=== PATIENT | female | born 1960 | race Caucasian/White ===

== ENCOUNTER 2016-09-23 15:49 | Emergency (ER) | payer SELFPAY ==
[2016-09-23] MEDS ORDERED: NACL 0.9% IR ONE (19:10)
[2016-09-23] MEDS ORDERED: BOOSTRIX IM ONE (19:10)
[2016-09-23] MEDS ORDERED: XYLOCAINE 1% 20 mL INFILTRATI ONE (19:10)
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
[2016-09-23 20:07] VITALS: BP 150/107
== END 2016-09-23 20:07 | disposition home or self-care (01) ==
LOC: ED 15:49
DX: S81.812A Laceration without foreign body, left lower leg, initial encounter (principal); I10 Essential (primary) hypertension; I25.2 Old myocardial infarction; F17.200 Nicotine dependence, unspecified, uncomplicated; Z95.1 Presence of aortocoronary bypass graft; Z88.8 Allergy status to other drugs, medicaments and biological substances; W25.XXXA Contact with sharp glass, initial encounter; Y93.89 Activity, other specified; Y92.89 Other specified places as the place of occurrence of the external cause; Y99.8 Other external cause status
CPT/HCPCS: 90471; 90715; 99282

== ENCOUNTER 2021-05-11 19:23 | Emergency (ER) | payer OTHER, MEDICARE ==
[2021-05-11] MEDS ORDERED: HYDROcodone/ACETAMINOPHEN 5-325 MG TAB PO ONE (22:28)
[2021-05-11] MEDS ORDERED: IBUPROFEN 600 MG TAB PO ONE (22:28)
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
[2021-05-12 00:44] VITALS: BP 136/70
== END 2021-05-12 00:37 | disposition home or self-care (01) ==
LOC: ED 19:23
DX: S16.1XXA Strain of muscle, fascia and tendon at neck level, initial encounter (principal); S39.012A Strain of muscle, fascia and tendon of lower back, initial encounter; M17.10 Unilateral primary osteoarthritis, unspecified knee; I10 Essential (primary) hypertension; Z91.041 Radiographic dye allergy status; X58.XXXA Exposure to other specified factors, initial encounter; Y93.89 Activity, other specified; Y92.89 Other specified places as the place of occurrence of the external cause; Y99.8 Other external cause status
CPT/HCPCS: 72040; 72070; 72100; 99283